=== PATIENT | female | born 1965 | race Caucasian/White ===

== ENCOUNTER 2018-10-16 14:31 | Inpatient (IN) | payer OTHER ==
[~2018-10-16] VITALS: Ht 162.6 cm; Wt 56.2 kg
[~2018-10-16 14:31] MED LIST: LEVAQUIN750 MG PO; ULTRACET PO
--- NOTE | 2018-10-16 15:35 | NUR ---
SE RECIBE PTE FEMINA ALERTA Y ORIENTADA X3 QUIEN PRESENTA ABCESO EN GLUTEO IZQ, SE PALPA AREA DURA Y SE OBSERVA AREA DRENANDO, AL MEDIR S/V LA MISMA PRESENTA TEMP DE 103.3F Y HR EN 160, PTE REFIERE DIFICULTAD PARA RESPIRAR. SE LE REALIZA EKG Y SE PRESENTA PTE A LA DENISE OVIEDO QUIEN REFIERE PTE SE UBICA EN UNIDAD DE DOLOR DE PECHO Y SE CONECTA A MONITOR CARDIACO.
--- NOTE | 2018-10-16 18:04 | NUR ---
1545PM PTE SE RECIBE ALERTA Y ORIENTADA NO DOLOR DE PECHO. PTE REFIERE VIENE POR UN ABSESS DE GLUTEO LT. SE LE CANALIZA EN MANO LT CON ANGIO # 20 H/L 1630PM PTE S/V T 104.6 BP 119/70 P 157 R 24 SAT 93/% SE LE NOTIFICA AL DR GILLESPIE. 1700 SE LE LATANYA CMP ,CBC, TROPONINA,B/C 3 U/A U/C,CK. Y SE LE REALIZA CULTIVO DE ABSESS GLUTEO RT. AREA DE DE GLUROE LT SE OBSERVA BACON Y CHAR DRENANDO LEVE ORIFICIO DRENANDO CON EDOR FETIDO BACON SANGUINLIENTO.CHAR AL TACTO. PTE REFIERE HACE 3 SHUKLA TIENE LUIS MIGUEL ABSESO. SE OBSERVA POR CAMBIOS. 1710PM SE LE COLOCA 45NS A 150ML/HR CON REGULADOR 1800 SE ENVIA PTE A RADIOLOGIA DE DARREN DE EMERCGENCIA PARA PLACA PA/LAT/ 1809 PM REGERESA PTE DE PALACA 1814 SE LE ADMINISTRA ANTIBIOTICO.ZOZYN 3.375 IBV Y SE LELAPLICA MEDIADAS ANTIPIRETICAS.
--- NOTE | 2018-10-16 18:57 | NUR ---
SE LE REALIZA DTX 484MG/DL SE LE NOTIFICA AL DR GILLESPIE SE LE ADMINISTRA HUMULIN R 10 IV 10 S/C EN ANTEBRAZO LT. SE OEIRNTA PTE DE TRAYTAMIENTO Y MEDIAMENTOS PTE ACOMPANADA DE PEREZ ESPOSO. SE OBSEEVA POR CAMBIOS,.
--- NOTE | 2018-10-16 21:00 | NUR ---
PT E REFIERE CALOR SE LE LATANYA TEM 101.5 BP 79/56 SAT 93% P 133. R 33 DTX [address] ROCA. SE LE ADMONISTRA HUMULIN REG 10 UNIT IV. SE LE COLOCA NS9 1000ML A 150ML/HR. SE LE APLICA ICE BAG AL MIKE MEDIDAS ANTIPIRETICAS., PTE ALAERTA Y ORIENTADA. SE OBSERVA POR CAMBIOS.
--- NOTE | 2018-10-16 23:19 | NUR ---
SE RECIBE PTE ALERTA Y ORIENTADA POR 3 LA CUAL SE ENCUENTRA EN CLARISSA CON BARANDAS ELEVADAS, ID BAND LA MISMA SE ENCUENTRA CONECTADA A MONITOR CARDIACO Y OXIMETRIA DE PULSO SATURANDO UN 100%. PTE SE ENCUENTRA CON AREA DE VENOPUNCION SANJIV DE EDEMA Y ENROJEICMIENTO CON IV FLUID PATENTE. SE ENCUENTRA PEND A CT PELVICO Y CONSULTA CON MEDICINA INTERNA.
--- NOTE | 2018-10-17 07:51 | NUR ---
SE RECIBE PTE EN CLARISSA CON BARANDAS ELEVADAS CON IVFS PATENTE, ALERTA, ORIENTADA POR CICI. ACOMPANADA POR FAMILIAR CONECTADA A MONITOR CARDIACO.PTE CON ABSCESO EN GLUTEO PATI. SE MANTIENE EN OBSERVACION Y PENEDIENTE A CONSULTA CON .
--- NOTE | 2018-10-17 08:51 | NUR ---
EVALUADA POR EL SE ORIENTA SOBRE TRATAMIENTO MEDICO. SE LE EXTRAE MUESTRA DE BERNARDO PT PTT Y SE ENVIAN AL LABORATORIO. SE MANTIENE EN OBSERVACION.
== END 2018-10-19 14:13 | disposition home or self-care (01) | DRG 988 ==
LOC: ER 14:31 → SEC-K 10-17 08:51 → O/R 10-17 08:51 → SURG 10-17 18:16
PROVIDERS: Surgery; ADMIT Internal Medicine
PROC: 3E0T3BZ Introduction of Anesthetic Agent into Peripheral Nerves and Plexi, Percutaneous Approach (ICD-10-PCS; 2018-10-17)
PROC: 0J9B0ZZ Drainage of Perineum Subcutaneous Tissue and Fascia, Open Approach (ICD-10-PCS; principal; 2018-10-17 11:00)
DX: K61.39 Other ischiorectal abscess (principal); L02.31 Cutaneous abscess of buttock; N17.8 Other acute kidney failure; B95.1 Streptococcus, group B, as the cause of diseases classified elsewhere; B96.29 Other Escherichia coli [E. coli] as the cause of diseases classified elsewhere; B95.2 Enterococcus as the cause of diseases classified elsewhere; B96.89 Other specified bacterial agents as the cause of diseases classified elsewhere; R50.9 Fever, unspecified

== ENCOUNTER → 2018-10-23 | Emergency (ER) | payer OTHER ==
[~2018-10-23] VITALS: Ht 157.5 cm; Wt 97.1 kg
[~2018-10-23] MED LIST changes: +GLIMEPIRIDE4 MG; +JENTADUETO XR1 EACH; +LISINOPRIL20 MG
== END | disposition left against medical advice (07) ==
LOC: ER 08:31
DX: Z53.20 Procedure and treatment not carried out because of patient's decision for unspecified reasons (principal)

== ENCOUNTER 2024-12-29 08:00 | Emergency (ER) | payer OTHER ==
[~2024-12-29] VITALS: Ht 162.6 cm; Wt 97.1 kg
[2024-12-29] MEDS ORDERED: KETOROLAC TROMETHAMINE 30 MG VIAL IV STA (09:13)
[2024-12-29] MEDS ORDERED: CLINDAMYCIN PHOSPHATE 150 MG/ML (900mg) IV STA (09:13)
== END 2024-12-29 11:22 | disposition home or self-care (01) ==
LOC: ER 08:03
DX: N75.8 Other diseases of Bartholin's gland (principal); E11.9 Type 2 diabetes mellitus without complications; Z79.84 Long term (current) use of oral hypoglycemic drugs